=== PATIENT | female | born 1990 ===

== ENCOUNTER 2017-10-04 23:42 | Inpatient (IN) | payer MEDICAID, OTHER ==
[2017-10-04] MEDS ORDERED: Sodium Chloride 0.9% 1,000 ML IV ONE (23:59)
--- NOTE | 2017-10-04 23:59 | C.PDOC ---
History Of Present Illness 27 year old female presents to the ED c/o abdominal pain and vomiting that started over the past 2 days. Patient states she is not sure if she is or not. Patient denies fever, chills, nausea, diarrhea, vaginal bleeding, vaginal discharge. Time Seen by Provider: 10/04/17 23:58 Chief Complaint (Nursing): Abdominal Pain History Per: Patient History/Exam Limitations: no limitations Onset/Duration Of Symptoms: Days Current Symptoms Are (Timing): Worse Context: Other Severity: Moderate Pain Scale Rating Of: 5 Location Of Pain/Discomfort: RLQ Radiation Of Pain To:: None Quality Of Discomfort: Sharp, Pressure, "Pain" Associated Symptoms: Vomiting. denies: Nausea, Diarrhea, Loss Of Appetite, Urinary Symptoms Exacerbating Factors: None Alleviating Factors: None Last Bowel Movement: Today Recent travel outside of the [place]: No Additional History Per: Patient Abnormal Vaginal Bleeding: No Last Menstral Period: 09/06/17 Past Medical History Reviewed: Historical Data, Nursing Documentation, Vital Signs Vital Signs: Last Vital Signs Temp 99.1 F 10/04/17 23:46 Pulse 100 H 10/04/17 23:46 Resp 22 10/04/17 23:46 BP 119/79 10/04/17 23:46 Pulse Ox 100 10/05/17 00:37 - Medical History PMH: No Chronic Diseases Surgical History: No Surg Hx - [facility] Procedures INJECT/INFUSE NEC (04/15/14) Family History: States: No Known Family Hx - Social History Hx Alcohol Use: No Hx Substance Use: No Review Of Systems Constitutional: Negative for: Fever, Chills Cardiovascular: Negative for: Chest Pain Respiratory: Negative for: Cough, Shortness of Breath Gastrointestinal: Positive for: Vomiting, Abdominal Pain. Negative for: Nausea , Diarrhea Musculoskeletal: Negative for: Back Pain Skin: Negative for: Rash Neurological: Negative for: Weakness, Numbness Psych: Negative for: Anxiety Physical Exam - Physical Exam Appears: Non-toxic, No Acute Distress Skin: Warm, Dry Head: Normacephalic Eye(s): bilateral: Normal Inspection Oral Mucosa: Moist Neck: Supple Chest: Symmetrical Cardiovascular: Rhythm Regular Respiratory: No Rales, No Rhonchi, No Wheezing Gastrointestinal/Abdominal: Soft, No Tenderness, No Distention, No Guarding, No Rebound Back: Normal Inspection Extremity: No Tenderness, No Swelling Extremity: Bilateral: Atraumatic, Normal Color And Temperature, Normal ROM Pulses: Left Dorsalis Pedis: Normal, Right Dorsalis Pedis: Normal Neurological/Psych: Oriented x3, Normal Speech Gait: Steady ED Course And Treatment - Laboratory Results Result Diagrams: 10/05/17 00:12 10/05/17 00:12 O2 Sat by Pulse Oximetry: 100 (ON RA) Pulse Ox Interpretation: Normal Progress Note: Plan: - CT abd/pelvis. - Labs. - IV fluids. - Zofran 4 mg IVP. - Zosyn IVPB. - UA Disposition Discussed With Dr.: Jakob Martini Comment: accepted the pt on her service and took over the care at 3:34 AM Doctor Will See Patient In The: ED Counseled Patient/Family Regarding: Studies Performed, Diagnosis - Disposition Disposition: HOSPITALIZED Disposition Time: 23:59 Condition: FAIR Forms: [facility] ([place]an) - POA Present On Arrival: None - Clinical Impression Clinical Impression: Abdominal pain, Acute appendicitis - Scribe Statement The provider has reviewed the documentation as recorded by the Scribe Ferdinand Senior All medical record entries made by the Scribe were at my direction and personally dictated by me. I have reviewed the chart and agree that the record accurately reflects my personal performance of the history, physical exam, medical decision making, and the department course for this patient. I have also personally directed, reviewed, and agree with the discharge instructions and disposition. Decision To Admit - Pt Status Changed To: Hospital Disposition Of: Inpatient - Admit Certification Admit to Inpatient:: After my assessment, the patient will require hospitalization for at least two midnights. This is because of the severity of symptoms shown, intensity of services needed, and/or the medical risk in this patient being treated as an outpatient. - InPatient: Physician Admission Certification:: After my assessment, the patient will require hospitalization for at least two midnights. This is because of the severity of symptoms shown, intensity of services needed, and/or the medical risk in this patient being treated as an outpatient. - . Bed Request Type: Regular Admitting Physician: Jakob Martini Patient Diagnosis: Abdominal pain, Acute appendicitis
[2017-10-05] MEDS ORDERED: Sodium Chloride 0.9% 1,000 ML ONE (00:12)
[2017-10-05 00:21] LABS: SQUAMOUS EPITHIAL 5 /hpf (0-5); URINE BACTERIA RARE (<OCC); URINE BILIRUBIN NEGATIVE (NEGATIVE); URINE BLOOD 1+ (NEGATIVE); URINE CLARITY Hazy (Clear); URINE COLOR Yellow (YELLOW); URINE GLUCOSE (UA) NORMAL (Normal); URINE LEUKOCYTE ESTERASE NEG Leu/uL (Negative); URINE PROTEIN NEGATIVE (NEGATIVE); URINE UROBILINOGEN NORMAL mg/dL (0.2-1.0)
[2017-10-05 00:22] LABS: BASO # 0.1 K/uL (0.0-0.2); BASO % 0.4 % (0.0-2.0); EOS # 0.1 K/uL (0.0-0.7); EOS % 0.5 % (0.0-4.0); HEMOGLOBIN 14.2 g/dL (11.0-16.0); LYMPH # 1.9 K/uL (1.0-4.3); LYMPH % 9.9 % (20.0-40.0); MEAN CELL VOLUME 96.6 fL (81.0-99.0); MEAN CORPUSCULAR HEMOGLOBIN 33.7 pg (27.0-31.0); MEAN CORPUSCULAR HGB CONC 34.8 g/dL (33.0-37.0); MEAN PLATELET VOLUME 9.9 fL (7.2-11.7); MONO # 0.9 K/uL (0.0-0.8); MONO % 4.6 % (0.0-10.0); NEUT # 16.6 K/uL (1.8-7.0); NEUT % 84.6 % (50.0-75.0); PLATELET COUNT 262 K/uL (130-400); RBC 4.21 Mil/uL (3.80-5.20); RED CELL DISTRIBUTION WIDTH 12.9 % (11.5-14.5); WHITE BLOOD COUNT 19.6 K/uL (4.8-10.8)
[2017-10-05 00:25] LABS: HCG,QUALITATIVE URINE NEGATIVE (NEGATIVE)
[2017-10-05 00:26] LABS: INR 1.1; PROTHROMBIN TIME 11.5 SECONDS (9.7-12.2)
[2017-10-05 00:30] LABS: ALB/GLOB RATIO 1.4 (1.0-2.1); ALBUMIN 4.8 g/dL (3.5-5.0); CALCIUM 9.7 mg/dl (8.6-10.4); GFR AFRICAN-AMERICAN > 60; GFR NON-AFRICAN AMERICAN > 60; LIPASE 65 U/L (23-300)
[2017-10-05] MEDS ORDERED: Piperacillin/Tazobact 3.375 gm 100 ML IVPB STA (00:30)
[2017-10-05 00:32] LABS: ALT/SGPT 46 U/L (9-52); AST/SGOT 30 U/L (14-36); BLOOD UREA NITROGEN 14 mg/dL (7-17)
[2017-10-05] MEDS ORDERED: Piperacillin/Tazobact 3.375 gm 100 ML IVPB ONE (00:35)
[2017-10-05] MEDS ORDERED: Iodixanol 320 MG/ML 100 ML BOTTLE IV ONE (01:01)
[2017-10-05 01:46] LABS: BANDS 1 % (0-2); EOSINOPHIL 1 % (0-4); LYMPHOCYTE 9 % (20-40); MONOCYTE 5 % (0-10); NEUTROPHIL 84 % (50-75); PLATELET ESTIMATE NORMAL (NORMAL); TOTAL CELLS COUNTED 100
--- NOTE | 2017-10-05 05:06 | CP.PCM.HP ---
History of Present Illness - History of Present Illness History of Present Illness: 27 year old female with PMHx of ?hypothyroid presents to the hospital with complaints of sudden onset, sharp generalized abdominal pain that started 7 hours ago ~10:30 pm. Patient states that she was not doing anything strenuous when it started and had to sit down from the pain. She states that the pain started off as an 8/10 and has gotten better to a 5/10. Patient states the the pain radiates from her LLQ to the suprapubic region. She also complains of nausea and 4- 5 episodes of non-bloody vomiting that started simultaneously. She tried to take Advil for the pain but could not keep it down. She also complains of recent constipation for the past week. She denies fevers, chills, diarrhea, bloody stools, vaginal bleeding and discharge, chest pain, shortness of breath, and dysuria. LMP: September 06, . Her last meal was at 7 pm last night. PMHx: ?hypothyroidism PSHx: none Allergies: none SocialHx: denies smoking cigarettes and illicit drug use, admits to drinking a alcoholic drink per week Medications: none Past Patient History - Past Social History Smoking Status: Never Smoked - GENITOURINARY/GYNECOLOGICAL Other/Comment: 14 wks w/ demise 3 days ago. - PSYCHIATRIC Hx Substance Use: No - SURGICAL HISTORY Hx Surgeries: No - ANESTHESIA Hx Anesthesia: No Meds Allergies/Adverse Reactions: Allergies Allergy/AdvReac Type Severity Reaction Status Date / Time No Known Allergies Allergy Verified 10/04/17 23:51 Results - Vital Signs Recent Vital Signs: Last Vital Signs Temp 98.8 F 10/05/17 05:05 Pulse 77 10/05/17 05:05 Resp 20 10/05/17 05:05 BP 118/77 10/05/17 05:05 Pulse Ox 99 10/05/17 05:05 - Labs Result Diagrams: 10/05/17 00:12 10/05/17 00:12 Labs: Laboratory Results - last 24 hr 10/05/17 10/05/17 10/05/17 00:12 00:12 00:12 WBC 19.6 H D RBC 4.21 Hgb 14.2 Hct 40.6 MCV 96.6 MCH 33.7 H MCHC 34.8 RDW 12.9 Plt Count 262 MPV 9.9 Neut % (Auto) 84.6 H Lymph % (Auto) 9.9 L Mcleod % (Auto) 4.6 Eos % (Auto) 0.5 Baso % (Auto) 0.4 Neut # (Auto) 16.6 H Lymph # (Auto) 1.9 Mcleod # (Auto) 0.9 H Eos # (Auto) 0.1 Baso # (Auto) 0.1 Neutrophils % (Manual) 84 H Band Neutrophils % 1 Lymphocytes % (Manual) 9 L Monocytes % (Manual) 5 Eosinophils % (Manual) 1 Platelet Estimate Normal PT 11.5 INR 1.1 APTT 30 Sodium Potassium Chloride Carbon Dioxide Anion Gap BUN Creatinine Est GFR ( Amer) Est GFR (Non-Af Amer) Random Glucose Calcium Total Bilirubin AST ALT Alkaline Phosphatase Total Protein Albumin Globulin Albumin/Globulin Ratio Lipase Urine Color Yellow Urine Clarity Hazy Urine pH 5.0 Ur Specific [place] 1.019 Urine Protein Negative Urine Glucose (UA) Normal Urine Ketones Negative Urine Blood 1+ H Urine Nitrate Negative Urine Bilirubin Negative Urine Urobilinogen Normal Ur Leukocyte Esterase Neg Urine WBC (Auto) 2 Urine RBC (Auto) 2 Ur Squamous Epith Cells 5 Urine Bacteria Rare Urine HCG, Qual Negative 10/05/17 00:12 WBC RBC Hgb Hct MCV MCH MCHC RDW Plt Count MPV Neut % (Auto) Lymph % (Auto) Mcleod % (Auto) Eos % (Auto) Baso % (Auto) Neut # (Auto) Lymph # (Auto) Mcleod # (Auto) Eos # (Auto) Baso # (Auto) Neutrophils % (Manual) Band Neutrophils % Lymphocytes % (Manual) Monocytes % (Manual) Eosinophils % (Manual) Platelet Estimate PT INR APTT Sodium 143 Potassium 3.6 Chloride 104 Carbon Dioxide 23 Anion Gap 19 BUN 14 Creatinine 0.6 L Est GFR ( Amer) > 60 Est GFR (Non-Af Amer) > 60 Random Glucose 103 Calcium 9.7 Total Bilirubin 0.6 AST 30 ALT 46 Alkaline Phosphatase 82 Total Protein 8.3 Albumin 4.8 Globulin 3.4 Albumin/Globulin Ratio 1.4 Lipase 65 Urine Color Urine Clarity Urine pH Ur Specific [place] Urine Protein Urine Glucose (UA) Urine Ketones Urine Blood Urine Nitrate Urine Bilirubin Urine Urobilinogen Ur Leukocyte Esterase Urine WBC (Auto) Urine RBC (Auto) Ur Squamous Epith Cells Urine Bacteria Urine HCG, Qual
[2017-10-05] MEDS: Lactated Ringer's 1,000 ML IV SCH ×2 (05:45→15:10)
[2017-10-05] MEDS: Piperacillin/Tazobact 3.375 GM in Sodium Chloride 100 ML IVPB SCH ×3 (05:45→11:35)
[2017-10-05] MEDS ORDERED: Propofol 10 mg/ml Inj (20 ML) ONE ×2 (07:58→09:14)
[2017-10-05] MEDS ORDERED: Midazolam 2 MG/2 ML VIAL ONE (07:58)
[2017-10-05] MEDS ORDERED: Neostigmine Methylsulfate 3mg/3ml Syringe IV ONE (08:49)
[2017-10-05] MEDS ORDERED: Rocuronium 10 mg/ml (5 ml) ONE (08:49)
--- NOTE | 2017-10-05 09:27 | CT ---
Date of service: 10/05/2017 PROCEDURE: CT Abdomen and Pelvis without intravenous contrast HISTORY: Abdominal pain. Leukocytosis. COMPARISON: None. TECHNIQUE: Multiple contiguous axial images were performed through the abdomen and pelvis with the use of intravenous contrast. Subsequently, sagittal coronal reformatted images were obtained. Radiation dose: Total exam DLP = 318 mGy-cm. This CT exam was performed using one or more of the following dose reduction techniques: Automated exposure control, adjustment of the mA and/or kV according to patient size, and/or use of iterative reconstruction technique. FINDINGS: LOWER THORAX: Dependent atelectasis at the lung bases. LIVER: Rounded enhancing 1.4 centimeter lesion seen within the right hepatic lobe on series 3, image 37. This is of uncertain clinical etiology. Further evaluation with a contrast-enhanced multiphasic CT or MR is recommended for evaluation. GALLBLADDER AND BILE DUCTS: Unremarkable. PANCREAS: Unremarkable. No gross lesion or ductal dilatation. SPLEEN: Unremarkable. ADRENALS: Unremarkable. No mass. KIDNEYS AND URETERS: Unremarkable. No hydronephrosis. No solid mass. VASCULATURE: Unremarkable. No aortic aneurysm. BOWEL: See below. Bowel wall thickening at the level of the cecum as well as at the level of the distal sigmoid colon. This may be reactive. Clinical correlation. APPENDIX: Appendix is dilated measuring up to 1 centimeters with associated surrounding inflammatory change concerning for possible acute appendicitis. PERITONEUM: Small amount of free fluid noted within the posterior pelvic cul-de-sac and adjacent to the right adnexa. Heterogeneous uterus and endometrium. LYMPH NODES: Unremarkable. No enlarged lymph nodes. BLADDER: Unremarkable. REPRODUCTIVE: Unremarkable. BONES: No acute fracture. OTHER FINDINGS: None. IMPRESSION: 1. Appendix is dilated measuring up to 1 centimeter with associated surrounding inflammatory change concerning for possible acute appendicitis. Clinical correlation. 2. Bowel wall thickening at the level of the cecum as well as at the level of the distal sigmoid colon. This may be reactive. Clinical correlation. 3. Free within the pelvic cul-de-sac and right adnexa. Heterogeneous uterus, endometrium, and right adnexa. 4. Enhancing rounded 1.4 centimeter lesion seen within the right hepatic lobe on series 3, image 37. Further evaluation with multiphasic contrast enhanced CT or MR is recommended. These findings were preliminarily reported at 2:59 a.m. on 10/05/[address] Gianni Tabor from [facility].
[2017-10-05] MEDS ORDERED: HYDROmorphone 0.5 mg/0.5 ml ISec IVP PRN (09:32)
--- NOTE | 2017-10-05 09:34 | PCM.SURG1 ---
Surgeon's Initial Post Op Note - Surgeon's Notes Surgeon: Dr. Martini Grades 1 Thru 5 Teacher: Dr. Acuña PGY4, [facility] IV Type of Anesthesia: General Endo Anesthesia Administered By: Dr. Rodriguez Pre-Operative Diagnosis: Acute Appendicitis Operative Findings: Inflammed appendix Post-Operative Diagnosis: Acute Appendicitis Operation Performed: Laparoscopic appendectomy Specimen/Specimens Removed: Appendix Estimated Blood Loss: EBL {In ML}: 10 Blood Products Given: N/A Drains Used: No Drains Post-Op Condition: Good Date of Surgery/Procedure: 10/05/17 Time of Surgery/Procedure: 08:00
[2017-10-05 11:42] VITALS: O2SAT 97
[2017-10-05 17:47] VITALS: BP 100/67; PULSE 92; RESP 20; TEMP 98.1
[2017-10-07] MEDS ORDERED: Pneumococcal 23-Valent Vaccine IM ONE (10:00)
--- NOTE | 2017-10-09 08:03 | OP ---
Copied To: Jeanine Acuña DO Attending MD: Jakob Martini MD PROCEDURE DATE: 10/05/2017 SURGEON: Dr. Martini EXECUTIVE VP: Jeanine Acuña DO PGY-4 ANESTHESIA: General endotracheal anesthesia. ANESTHESIOLOGIST: Dr. Rodriguez. PREOPERATIVE DIAGNOSIS: Acute appendicitis. OPERATIVE FINDINGS: Inflamed appendix. POSTOPERATIVE DIAGNOSIS: Acute appendicitis. OPERATION PERFORMED: Laparoscopic appendectomy. SPECIMEN: Appendix. ESTIMATED BLOOD LOSS: 10 mL. DRAINS: There is no drains. INDICATIONS FOR PROCEDURE: This is a 27-year-old female with no past medical history who presented with right lower quadrant abdominal pain acute appendicitis. DESCRIPTION OF THE PROCEDURE: The patient was placed on the operating table in the supine position. Timeout was performed to verify the correct patient, procedure site. clinical aspiration prior to the beginning of the procedure. General endotracheal anesthesia was induced. The abdomen was prepped and draped in usual sterile fashion. An incision was made in the natural skin line below the umbilicus. The fascia was elevated and the Veress needle was inserted. Abdomen was insufflated with carbon dioxide to pressure of 15 mmHg. Patient tolerated insufflation well. An 11 mm bladed trocar was then inserted. Laparoscope was inserted and abdomen was inspected. There is no injuries in the initial trocar placement. Under direct visualization, a 4 mm trocar was inserted above the symphysis pubis and below the hairline. Next, a 5 mm trocar was inserted in the left lower quadrant lateral to the rectus muscle. Patient was placed in Trendelenburg position made with the right side up. The cecum was manipulated with the grasper and the appendix was identified. The appendix was acutely inflamed and there were lumps on the appendix of uncertain etiology possibly endometriosis. The appendix was then grasped with an atraumatic grasper and elevated exposing the base of the appendix. An endoscopic linear cutting stapler was then used to divide and staple the base of the appendix. The stapler was then reloaded with a vascular cartridge and then was used to similarly divide the mesoappendix. The appendix was placed in an endoscopic retrieval bag and removed via the 11 mm port site. The appendiceal stump was evaluated and noted to have some bleeding, therefore clips were placed and hemostasis was achieved. Fluid was suctioned from the right lower quadrant and the pelvis. Trocars are removed under direct vision. No bleeding was noted. Laparoscope was withdrawn and the umbilical trocar was removed. Pneumoperitoneum was evacuated. The 11 mm and the 12 mm trocar site were closed with 0 Vicryl. The skin was closed with subcuticular sutures of 4-0 Monocryl and Steri-Strips applied. Patient tolerated the procedure well and was taken to the PACU in stable condition. Jeanine Acuña DO Jakob Martini MD
== END 2017-10-05 17:30 | disposition home or self-care (01) | DRG 343 ==
LOC: C.ER 23:42 → C.3T 10-05 03:33
PROVIDERS: ADMIT Specialist; ATTEND Specialist
PROC: 0DTJ4ZZ Resection of Appendix, Percutaneous Endoscopic Approach (ICD-10-PCS; principal; 2017-10-05 07:45)
DX: K35.80 Unspecified acute appendicitis (principal); E03.9 Hypothyroidism, unspecified

== ENCOUNTER 2018-02-28 11:25 | Outpatient (CLI) | payer OTHER | END 2018-02-28 11:26 | disposition home or self-care (01) | LOC: C.LAB 11:25 | DX: E03.9 Hypothyroidism, unspecified (principal); E55.9 Vitamin D deficiency, unspecified; D64.9 Anemia, unspecified; M32.0 Drug-induced systemic lupus erythematosus; M06.9 Rheumatoid arthritis, unspecified ==

== ENCOUNTER 2018-03-29 12:22 | Outpatient (CLI) | payer SELFPAY | END 2018-03-29 12:23 | disposition home or self-care (01) | LOC: C.LAB 12:22 | DX: Z34.91 Encounter for supervision of normal pregnancy, unspecified, first trimester (principal) ==

== ENCOUNTER 2018-04-24 11:33 | Outpatient (CLI) | payer SELFPAY | END 2018-04-24 11:34 | disposition home or self-care (01) | LOC: C.LAB 11:33 | DX: Z34.81 Encounter for supervision of other normal pregnancy, first trimester (principal) ==

== ENCOUNTER 2018-04-24 12:25 | Inpatient (IN) | payer SELFPAY ==
[2018-04-24 12:38] VITALS: BMI 26.0
--- NOTE | 2018-04-24 13:41 | C.PDOC ---
History Of Present Illness 27 yr old F p/w evaluation by inpatient OB Dr. Roman for molar . Sent in by Dr. Paula for evaluation by inpatient OB team. Pt denies any vaginal bleeding and notes LMP was 01/28/18. No abdominal pain. No urinary complaints. No fever, chills or night sweats. No chest pain or back pain. No dark or bloody stool. No N/V. No other complaints. Time Seen by Provider: 04/24/18 13:26 Chief Complaint (Nursing): Female Genitourinary Past Medical History Vital Signs: Last Vital Signs Temp 98.8 F 04/24/18 12:38 Pulse 83 04/24/18 12:38 Resp 17 04/24/18 12:38 BP 123/76 04/24/18 12:38 Pulse Ox 99 04/24/18 12:38 - Medical History PMH: Denies: Chronic Kidney Disease - [facility] Procedures INJECT/INFUSE NEC (04/15/14) RESECTION OF APPENDIX, PERCUTANEOUS ENDOSCOPIC APPROACH (10/05/17) Family History: States: Unknown Family Hx - Social History Hx Alcohol Use: No Hx Substance Use: No - Immunization History Hx Tetanus Toxoid Vaccination: No Hx Influenza Vaccination: No Hx Pneumococcal Vaccination: No Review Of Systems Constitutional: Negative for: Fever, Chills Eyes: Negative for: Pain, Vision Change ENT: Negative for: Ear Pain, Ear Discharge Cardiovascular: Negative for: Chest Pain, Palpitations Respiratory: Negative for: Cough, Shortness of Breath Gastrointestinal: Negative for: Nausea, Vomiting, Constipation, Melena, Hematochezia, Hematemesis Genitourinary: Negative for: Dysuria, Frequency, Incontinence, Hematuria, Vaginal Discharge, Vaginal Bleeding Musculoskeletal: Negative for: Neck Pain, Shoulder Pain, Arm Pain, Back Pain, Hand Pain Skin: Negative for: Lesions Physical Exam - Physical Exam Appears: Well, Non-toxic, No Acute Distress Skin: Normal Color, Warm Head: Atraumatic, Normacephalic Eye(s): bilateral: Normal Inspection, PERRL, EOMI Nose: Normal, No Flaring, No Discharge Oral Mucosa: Moist Tongue: Normal Appearing Lips: Normal Appearing Teeth: Normal Dentition Gingiva: Normal Appearing Throat: Normal, No Erythema, No Exudate Neck: Normal, Normal ROM Lymphatic: Normal Exam Chest: Symmetrical Cardiovascular: Rhythm Regular Respiratory: Normal Breath Sounds, No Decreased Breath Sounds, No Wheezing Gastrointestinal/Abdominal: Normal Exam Back: Normal Inspection, No CVA Tenderness, No Vertebral Tenderness Extremity: Normal ROM, No Tenderness Extremity: Bilateral: Atraumatic Neurological/Psych: Oriented x3, Normal Speech, Normal Cognition Gait: Steady ED Course And Treatment - Laboratory Results Result Diagrams: 04/24/18 13:42 O2 Sat by Pulse Oximetry: 99 Medical Decision Making Medical Decision Makin yr old female p/w molar . Sent in for likely D&C. Well appearing on exam. No fever, chills or night sweats. No GI or complaints. No pelvic pain or abdominal pain [address] Roman bedside: to be admitted to OB service pending pt consent. 1530 appreciate consult w/ Dr. gonzalez: to be admitted to her service for [facility] pt in [facility]. Disposition - Disposition Disposition Time: 13:41 Condition: GOOD Forms: [facility] (Cook Islander) - Clinical Impression Clinical Impression: Molar
[2018-04-24 13:53] LABS: BASO % 0.4 % (0.0-2.0); EOS % 0.2 % (0.0-4.0); HEMOGLOBIN 14.7 g/dL (11.0-16.0); LYMPH # 1.6 K/uL (1.0-4.3); LYMPH % 15.1 % (20.0-40.0); MEAN CORPUSCULAR HEMOGLOBIN 34.2 pg (27.0-31.0); MEAN PLATELET VOLUME 10.1 fL (7.2-11.7); MONO # 0.4 K/uL (0.0-0.8); NEUT # 8.3 K/uL (1.8-7.0); NEUT % 80.3 % (50.0-75.0); RBC 4.29 Mil/uL (3.80-5.20); RED CELL DISTRIBUTION WIDTH 12.9 % (11.5-14.5)
[2018-04-24 14:08] LABS: MEAN CELL VOLUME 100.6 fL (81.0-99.0); WHITE BLOOD COUNT 10.3 K/uL (4.8-10.8)
[2018-04-24 14:15] LABS: PROTHROMBIN TIME 11.2 SECONDS (9.7-12.2)
[2018-04-24] MEDS ORDERED: Lactated Ringer's 1,000 ML IV SCH (14:30)
[2018-04-24] MEDS ORDERED: Lactated Ringer's 1,000 ML ONE (14:46)
--- NOTE | 2018-04-24 14:48 | CP.PCM.HP ---
<Amy Ag - Last Filed: 04/24/18 15:10> History of Present Illness - History of Present Illness History of Present Illness: HPI Patient is a 27yo female, presenting at 12 + 2 wks at the request of her OB (Dr. Martinez). Patient presented for routine US this morning and was subsequently sent to Dr. Martinez for evaluation of suspected molar . Pt was then sent to the ED for treatment of molar confirmed via US. Pt states her LMP was on 01/28/2018. Pt reports this is third . First was in 2014, she had a spontaneous at 12 weeks and was esteban ated with D&C at [facility]. Her second in 2016 complicated by spontaneous at 6 weeks, treated at [facility] with pharmacologic therapy. Pt reports medical hx significant for transient episode of hyperthyroidism following her second , treated with pharmacologic therapy x1 month with full resolution. Pt reports UTI one week ago and was treated with abx, last dose this past Monday. Pt denies headaches, fever, chills, palpitations, abdominal pain, nausea, vomiting, diarrhea, constipation, vaginal bleeding, vaginal discharge, dysuria OB Hx: at 12 + 2 wks based on LMP on 01/28/18. Two prior spontaneous abortions- 2014 at 12 wks, 2017 at 6 wks. Marketing Analytics Manager Hx: Menarche at 11 years old. Periods are irregular in frequency, skipping months, duration of bleeding 4 days, normal flow. PMHx: hyperthyroidism PSHx: appendectomy 2017, D&C 2014 Medications: vitamins Allergies: NKDA FamHx: denies SocHx: denies tobacco, alcohol, illicit drug use. Pt lives with male partner of 5 years. Homemaker. Present on Admission - Present on Admission Any Indicators Present on Admission: No Review of Systems - Constitutional Constitutional: absent: Chills, Fever, Headache - Cardiovascular Cardiovascular: absent: Chest Pain, Lightheadedness, Palpitations - Gastrointestinal Gastrointestinal: absent: Abdominal Pain, Constipation, Cramping, Diarrhea, Nausea, Vomiting - Genitourinary Genitourinary: absent: Dysuria, Hematuria, Urinary Frequency - Reproductive: Female Reproductive:Female: Amenorrhea. absent: Abnormal Vaginal Bleeding, Pelvic Pain - Menstruation Menstruation: Cycle Variable, Menses 1-7 Days, Normal Menses - Musculoskeletal Musculoskeletal: Back Pain - Integumentary Integumentary: absent: Change in Hair - Endocrine Endocrine: absent: Cold Intolorance, Heat Intolorance - Hematologic/Lymphatic Hematologic: absent: Easy Bleeding Past Patient History - Past Medical History & Family History Past Medical History?: Yes - Past Social History Smoking Status: Never Smoked - CARDIAC Hx Cardiac Disorders: No - PULMONARY Hx Respiratory Disorders: No - NEUROLOGICAL Hx Neurological Disorder: No - HEENT Hx HEENT Problems: No - RENAL Hx Chronic Kidney Disease: No - ENDOCRINE/METABOLIC Hx Endocrine Disorders: No - HEMATOLOGICAL/ONCOLOGICAL Hx Blood Disorders: No - INTEGUMENTARY Hx Dermatological Problems: No - MUSCULOSKELETAL/RHEUMATOLOGICAL Hx Musculoskeletal Disorders: No Hx Falls: No - GASTROINTESTINAL Hx Gastrointestinal Disorders: No - GENITOURINARY/GYNECOLOGICAL Other/Comment: 14 wks w/ demise 3 days ago. - PSYCHIATRIC Hx Substance Use: No - SURGICAL HISTORY Hx Surgeries: No - ANESTHESIA Hx Anesthesia: No Meds Allergies/Adverse Reactions: Allergies Allergy/AdvReac Type Severity Reaction Status Date / Time No Known Allergies Allergy Verified 04/24/18 12:37 Physical Exam - Constitutional Appears: Well, Non-toxic, No Acute Distress - Head Exam Head Exam: ATRAUMATIC, NORMAL INSPECTION, NORMOCEPHALIC - Eye Exam Eye Exam: EOMI, Normal appearance - ENT Exam ENT Exam: Mucous Membranes Moist - Neck Exam Neck exam: Positive for: Normal Inspection - Respiratory Exam Respiratory Exam: Clear to Auscultation Bilateral, NORMAL BREATHING PATTERN. absent: Rhonchi, Wheezes - Cardiovascular Exam Cardiovascular Exam: REGULAR RHYTHM, +S1, +S2. absent: Tachycardia - GI/Abdominal Exam GI & Abdominal Exam: Normal Bowel Sounds, Soft, Tenderness (tenderness in lower abdomen ) - Extremities Exam Extremities exam: Positive for: normal inspection. Negative for: calf tenderness, pedal edema - Back Exam Back exam: NORMAL INSPECTION. absent: CVA tenderness (L), CVA tenderness (R), tenderness - Neurological Exam Neurological exam: Alert, Normal Gait, Oriented x3 - Psychiatric Exam Psychiatric exam: Normal Affect, Normal Mood - Skin Skin Exam: Dry, Intact, Normal Color, Warm Results - Vital Signs Recent Vital Signs: Last Vital Signs Temp 98.8 F 04/24/18 12:38 Pulse 83 04/24/18 12:38 Resp 17 04/24/18 12:38 BP 123/76 04/24/18 12:38 Pulse Ox 99 04/24/18 13:48 - Labs Result Diagrams: 04/24/18 13:42 Labs: Laboratory Results - last 24 hr 04/24/18 04/24/18 13:42 13:42 WBC 10.3 D RBC 4.29 Hgb 14.7 Hct 43.1 MCV 100.6 H D MCH 34.2 H MCHC 34.0 RDW 12.9 Plt Count 290 MPV 10.1 Neut % (Auto) 80.3 H Lymph % (Auto) 15.1 L [place] % (Auto) 4.0 Eos % (Auto) 0.2 Baso % (Auto) 0.4 Neut # (Auto) 8.3 H Lymph # (Auto) 1.6 [place] # (Auto) 0.4 Eos # (Auto) 0.0 Baso # (Auto) 0.0 PT 11.2 INR 1.0 APTT 29 Assessment & Plan - Assessment and Plan (Free Text) Assessment: Pt is a 27yo female at 12 +2 weeks with PMH of hyperthyroidism, admitted for treatment of molar Plan: Molar Transvaginal US on 04/24 findings consistent with molar . Yolk sac and embryo not visualized. Absent cardiac activity. Plan for D&C today Keep NPO IVF, LR @125 F/u [facility] for baseline Hx of Hyperthyroidism Thyroid panel from 03/2018 reviewed and WNL. pt not currently on thyroid rx resolved Discussed with Dr. Roman -Amy Ag, PGY-1, Lakeisha Travis OMS-III <Krystal Roman - Last Filed: 04/24/18 17:17> Results - Vital Signs Recent Vital Signs: Last Vital Signs Temp 98.8 F 04/24/18 14:52 Pulse 84 04/24/18 14:52 Resp 17 04/24/18 14:52 BP 108/75 04/24/18 14:52 Pulse Ox 100 04/24/18 14:52 - Labs Result Diagrams: 04/24/18 13:42 04/24/18 13:42 Labs: Laboratory Results - last 24 hr 04/24/18 04/24/18 04/24/18 13:42 13:42 13:42 WBC 10.3 D RBC 4.29 Hgb 14.7 Hct 43.1 MCV 100.6 H D MCH 34.2 H MCHC 34.0 RDW 12.9 Plt Count 290 MPV 10.1 Neut % (Auto) 80.3 H Lymph % (Auto) 15.1 L [place] % (Auto) 4.0 Eos % (Auto) 0.2 Baso % (Auto) 0.4 Neut # (Auto) 8.3 H Lymph # (Auto) 1.6 [place] # (Auto) 0.4 Eos # (Auto) 0.0 Baso # (Auto) 0.0 PT 11.2 INR 1.0 APTT 29 Sodium 137 Potassium 2.9 L Chloride 101 Carbon Dioxide 24 Anion Gap 15 BUN 7 Creatinine 0.4 L Est GFR ( Amer) > 60 Est GFR (Non-Af Amer) > 60 POC Glucose (mg/dL) Random Glucose 82 Calcium 9.4 Total Bilirubin 0.4 AST 23 ALT 20 Alkaline Phosphatase 80 Total Protein 8.5 H Albumin 4.8 Globulin 3.6 Albumin/Globulin Ratio 1.3 Beta HCG, Quant [id number] Blood Type Antibody Screen 04/24/18 04/24/18 13:42 14:47 WBC RBC Hgb Hct MCV MCH MCHC RDW Plt Count MPV Neut % (Auto) Lymph % (Auto) [place] % (Auto) Eos % (Auto) Baso % (Auto) Neut # (Auto) Lymph # (Auto) [place] # (Auto) Eos # (Auto) Baso # (Auto) PT INR APTT Sodium Potassium Chloride Carbon Dioxide Anion Gap BUN Creatinine Est GFR ( Amer) Est GFR (Non-Af Amer) POC Glucose (mg/dL) 75 Random Glucose Calcium Total Bilirubin AST ALT Alkaline Phosphatase Total Protein Albumin Globulin Albumin/Globulin Ratio Beta HCG, Quant Blood Type O POSITIVE Antibody Screen Negative Attending/Attestation - Attestation I have personally seen and examined this patient.: Yes I have fully participated in the care of the patient.: Yes I have reviewed all pertinent clinical information: Yes Notes (Text): 04/24/18 17:10 Patient was seen, evaluated and examined by me with Dr. Ag, who also served as museum librarian. I agree with the above as documented. In addition, patient was counseled at length re: follow up of quantitative HCG levels until zero, and to use contraception for up to 12 months, if molar is confirmed. It was also D/W patient to consider pre- genetics counseling in light of 2 previous spontaneous abortions. Patient expressed an understanding and agrees. No questions were offered. Consent forms for surgery and possible blood transfusion were obtained after discussion of risks, potential complications and benefits. Patient is NPO since 2030 hours 04/23/18. Patient is investigations manager to the [employer]
[2018-04-24 14:52] VITALS: O2SAT 100
[2018-04-24 15:11] LABS: ALB/GLOB RATIO 1.3 (1.0-2.1); ALBUMIN 4.8 g/dL (3.5-5.0); ALT/SGPT 20 U/L (9-52); AST/SGOT 23 U/L (14-36); BLOOD UREA NITROGEN 7 mg/dL (7-17); CALCIUM 9.4 mg/dl (8.6-10.4); GFR NON-AFRICAN AMERICAN > 60
[2018-04-24] MEDS ORDERED: Propofol 10 mg/ml Inj (20 ML) ONE (15:44)
[2018-04-24] MEDS ORDERED: Midazolam 2 MG/2 ML VIAL ONE (15:44)
[2018-04-24] MEDS ORDERED: HYDROmorphone 0.5 mg/0.5 ml ISec IVP PRN (15:51)
[2018-04-24] MEDS ORDERED: Lidocaine Hydrochloride 5 ML INJ ONE (16:07)
[2018-04-24] MEDS ORDERED: Silver Nitrate Topical - Stick ONE (16:30)
--- NOTE | 2018-04-24 17:23 | PCM.SURG1 ---
Surgeon's Initial Post Op Note - Surgeon's Notes Surgeon: Krystal Roman MD Parachute Rigger: Not applicable Type of Anesthesia: General LMA Anesthesia Administered By: Sean Mera DO Pre-Operative Diagnosis: Molar . Hyperthyroidism. Hypokalemia Operative Findings: EUA: AV uterus, 12 weeks, soft. mobile. No adnexal masses. Uterus sounded to 11 cm. Moderate amount of tissue; moderate blood loss. Cervical laceration - anterior lip of cervix; repaired Post-Operative Diagnosis: Same Operation Performed: Suction D&C; repair of cervical laceration Specimen/Specimens Removed: Uterine curettings/ products of conception Estimated Blood Loss: EBL {In ML}: 700 (IVFs 1,000 mL LR with 20 units pitocin) Blood Products Given: N/A Drains Used: No Drains Post-Op Condition: Good
--- NOTE | 2018-04-24 17:37 | CP.PCM.DIS ---
Provider - Provider Attending physician: Krystal Roman MD Time Spent in preparation of Discharge (in minutes): 40 Diagnosis - Discharge Diagnosis (1) Molar Status: Acute Priority: High Onset Date: ~04/24/18 Comment: S/P uterine evacuation [facility] D&C. Quant HCG 397,190 (2) Hypokalemia Status: Acute Priority: Medium Onset Date: ~04/24/18 Comment: S/P K-rider 20 mEq x 2 Hospital Course - Lab Results Lab Results: Most Recent Lab Values WBC 10.3 K/uL (4.8-10.8) D 04/24/18 13:42 RBC 4.29 Mil/uL (3.80-5.20) 04/24/18 13:42 Hgb 14.7 g/dL (11.0-16.0) 04/24/18 13:42 Hct 43.1 % (34.0-47.0) 04/24/18 13:42 MCV 100.6 fL (81.0-99.0) H D 04/24/18 13:42 MCH 34.2 pg (27.0-31.0) H 04/24/18 13:42 MCHC 34.0 g/dL (33.0-37.0) 04/24/18 13:42 RDW 12.9 % (11.5-14.5) 04/24/18 13:42 Plt Count 290 K/uL (130-400) 04/24/18 13:42 MPV 10.1 fL (7.2-11.7) 04/24/18 13:42 Neut % (Auto) 80.3 % (50.0-75.0) H 04/24/18 13:42 Lymph % (Auto) 15.1 % (20.0-40.0) L 04/24/18 13:42 [place] % (Auto) 4.0 % (0.0-10.0) 04/24/18 13:42 Eos % (Auto) 0.2 % (0.0-4.0) 04/24/18 13:42 Baso % (Auto) 0.4 % (0.0-2.0) 04/24/18 13:42 Neut # (Auto) 8.3 K/uL (1.8-7.0) H 04/24/18 13:42 Lymph # (Auto) 1.6 K/uL (1.0-4.3) 04/24/18 13:42 [place] # (Auto) 0.4 K/uL (0.0-0.8) 04/24/18 13:42 Eos # (Auto) 0.0 K/uL (0.0-0.7) 04/24/18 13:42 Baso # (Auto) 0.0 K/uL (0.0-0.2) 04/24/18 13:42 PT 11.2 SECONDS (9.7-12.2) 04/24/18 13:42 INR 1.0 04/24/18 13:42 APTT 29 SECONDS (21-34) 04/24/18 13:42 Sodium 137 mmol/L (132-148) 04/24/18 13:42 Potassium 2.9 mmol/L (3.6-5.2) L 04/24/18 13:42 Chloride 101 mmol/L (98-107) 04/24/18 13:42 Carbon Dioxide 24 mmol/L (22-30) 04/24/18 13:42 Anion Gap 15 (10-20) 04/24/18 13:42 BUN 7 mg/dL (7-17) 04/24/18 13:42 Creatinine 0.4 mg/dL (0.7-1.2) L 04/24/18 13:42 Est GFR ( Amer) > 60 04/24/18 13:42 Est GFR (Non-Af Amer) > 60 04/24/18 13:42 POC Glucose (mg/dL) 75 mg/dL (65-110) 04/24/18 14:47 Random Glucose 82 mg/dL (65-105) 04/24/18 13:42 Calcium 9.4 mg/dl (8.6-10.4) 04/24/18 13:42 Total Bilirubin 0.4 mg/dL (0.2-1.3) 04/24/18 13:42 AST 23 U/L (14-36) 04/24/18 13:42 ALT 20 U/L (9-52) 04/24/18 13:42 Alkaline Phosphatase 80 U/L (38-126) 04/24/18 13:42 Total Protein 8.5 g/dL (6.3-8.3) H 04/24/18 13:42 Albumin 4.8 g/dL (3.5-5.0) 04/24/18 13:42 Globulin 3.6 gm/dL (2.2-3.9) 04/24/18 13:42 Albumin/Globulin Ratio 1.3 (1.0-2.1) 04/24/18 13:42 Beta HCG, Quant [id number] mIU/ML 04/24/18 13:42 Blood Type O POSITIVE 04/24/18 13:42 Antibody Screen Negative 04/24/18 13:42 - Hospital Course Hospital Course: Patient admitted and underwent uncomplicated suction D&C under general with LMA without incident. Hypokalemia noted and repleted. Patient discharged home in stable condition Follow up [facility] in week Nothing per vagina x 2 weeks Rx: Motrin 600 mg 1 tab by mouth every 6 hours as needed, (moderate pain) #24 - Date & Time of H&P Date of H&P: 04/24/18 Time of H&P: 15:10 Discharge Exam - Head Exam Head Exam: ATRAUMATIC, NORMAL INSPECTION, NORMOCEPHALIC - Neck Exam Neck exam: Full Rom - Respiratory Exam Respiratory Exam: NORMAL BREATHING PATTERN - GI/Abdominal Exam GI & Abdominal Exam: Normal Bowel Sounds, Soft - Rectal Exam Rectal Exam: Deferred - Extremities Exam Extremities exam: full ROM, normal inspection - Neurological Exam Neurological exam: Alert, Oriented x3 - Psychiatric Exam Psychiatric exam: Normal Affect, Normal Mood - Skin Skin Exam: Dry, Intact, Normal Color, Warm Discharge Plan - Follow Up Plan Condition: GOOD Disposition: HOME/ ROUTINE
[2018-04-24 18:41] VITALS: BP 123/81; PULSE 82; RESP 18; TEMP 97.8
--- NOTE | 2018-04-24 21:22 | OP ---
PROCEDURE DATE: 04/24/2018 SURGEON: Krystal Roman MD BOX TOE FLANGER STITCHDOWNS: None applicable. ANESTHESIOLOGIST: Sean Mera MD ANESTHESIA TYPE: General with LMA. PREOPERATIVE DIAGNOSIS: Probable molar with hyperthyroidism and hypokalemia. POSTOPERATIVE DIAGNOSIS: Probable molar with hyperthyroidism and hypokalemia. OPERATIVE FINDINGS: Examination under anesthesia, anteverted uterus 12 weeks in size, soft, and mobile with no adnexal masses. Uterus sounded to 11 cm with a moderate amount of tissue and moderate blood loss. Incidental cervical laceration on the anterior lip of the cervix which was repaired. PROCEDURE PERFORMED: Suction dilation and curettage with paracervical laceration. SPECIMEN: Uterine curettings, products of conception. ESTIMATED BLOOD LOSS: 700 mL. INTRAVENOUS FLUIDS: 1000 mL of lactated Ringer with 20 units of Pitocin. BLOOD PRODUCTS GIVEN: None. COMPLICATIONS: As above, i.e., cervical laceration. POSTOPERATIVE CONDITION: Good. DESCRIPTION OF PROCEDURE: The patient was taken to the operating room after having obtained informed consent for the anticipated procedure. This included discussion of possible complication, risks, and benefits including, but not limited to uterine perforation requiring laparoscopy, laparotomy, repair of any damage to internal organs, removal of all diseased tissue, nerve damage. The patient expressed an understanding, and no questions were offered. Consent forms were signed, dated, witnessed, and placed in the chart. The patient had been n.p.o. since 08:30 p.m. on 04/23/2018. The patient was escorted to the main operating room, and after that, she was subsequently transferred to the operating room. In the operating room, she was placed on the table in a supine manner and general anesthesia with LMA was administered without incident. She was immediately repositioned into dorsal lithotomy position with her legs in the candy-cane stirrups, and vagina was prepped, and examination under anesthesia was performed with the findings as above. The bladder was catheterized under sterile conditions and approximately maybe 100 mL of clear urine was obtained. The uterus was subsequently draped in the usual sterile fashion. A weighted speculum was placed in the posterior vaginal vault. Using a Gaspar retractor, the anterior lip of the cervix was visualized and was grasped using single-toothed tenaculum. Using Hegar mechanical dilators, the cervix was then dilated to 20 mm to allow a 10 cm curved suction curette. Upon introducing the curette into the uterine cavity, it was attached to the suction device and the device was turned on. The uterus was then emptied of its contents. Moderate amount of tissue and blood were obtained as described above. Sharp curettage was performed until a gritty texture was obtained. The uterus was noted to be contracted around the instruments. Unfortunately, during the introduction of the suction curette with added traction on the cervix, laceration had been sustained of approximately 3 cm in its total length, and hence, it was repaired using 2-0 chromic in a running interlocking fashion, and hemostasis was assured additionally by applying silver nitrate sticks. After showing adequate hemostasis, bimanual massage was performed, and the uterus was noted to be contracted about 10 weeks in size. All instruments were removed. The patient was repositioned in supine manner. She was extubated and allowed to arise from anesthesia and transferred to the PACU in stable condition. Krystal Roman MD
[2018-04-24] MEDS ORDERED: Potassium Chloride 20 mEq ER Tab PO ONE (22:15)
== END 2018-04-24 23:00 | disposition hospice, home (50) | DRG 542 ==
LOC: C.ER 12:25 → C.SDS 14:44 → C.4M 17:32
PROVIDERS: ADMIT Obstetrics & Gynecology; ATTEND Obstetrics & Gynecology
PROC: 0UQC7ZZ Repair Cervix, Via Natural or Artificial Opening (ICD-10-PCS; 2018-04-24)
PROC: 10D07Z8 Extraction of Products of Conception, Other, Via Natural or Artificial Opening (ICD-10-PCS; principal; 2018-04-24 17:00)
DX: O02.0 Blighted ovum and nonhydatidiform mole (principal); S37.63XA Laceration of uterus, initial encounter; E05.90 Thyrotoxicosis, unspecified without thyrotoxic crisis or storm; E87.6 Hypokalemia; Y65.8 Other specified misadventures during surgical and medical care

== ENCOUNTER 2018-05-02 11:51 | Outpatient (CLI) | payer SELFPAY | END 2018-05-02 11:52 | disposition home or self-care (01) | LOC: C.LAB 11:51 | DX: Z00.00 Encounter for general adult medical examination without abnormal findings (principal) ==

== ENCOUNTER 2018-05-11 12:52 | Outpatient (CLI) | payer SELFPAY | END 2018-05-11 12:53 | disposition home or self-care (01) | LOC: C.LAB 12:52 | DX: O01.9 Hydatidiform mole, unspecified (principal) ==

== ENCOUNTER 2018-05-18 12:58 | Outpatient (CLI) | payer SELFPAY | END 2018-05-18 12:59 | disposition home or self-care (01) | LOC: C.LAB 12:58 | DX: O01.9 Hydatidiform mole, unspecified (principal) ==

== ENCOUNTER 2018-06-18 10:58 | Outpatient (CLI) | payer SELFPAY | END 2018-06-18 10:59 | disposition home or self-care (01) | LOC: C.LAB 10:58 | DX: N91.2 Amenorrhea, unspecified (principal) ==

== ENCOUNTER 2018-06-25 11:59 | Outpatient (CLI) | payer SELFPAY | END 2018-06-25 12:00 | disposition home or self-care (01) | LOC: C.LAB 11:59 | DX: R89.9 Unspecified abnormal finding in specimens from other organs, systems and tissues (principal) ==

== ENCOUNTER → 2018-06-26 | Outpatient (CLI) | payer OTHER, SELFPAY | LOC: C.USIC 14:09 | DX: N83.202 Unspecified ovarian cyst, left side (principal) ==